=== PATIENT | female | born 2000 | race Caucasian/White ===

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

== ENCOUNTER 2023-09-13 15:48 | Emergency (ER) | payer OTHER ==
[~2023-09-13] VITALS: Ht 152.4 cm; Wt 70.3 kg
[2023-09-13 16:18] VITALS: BP 115/61; PULSE 72; RESP 18; TEMP 98.5; O2SAT 100
[2023-09-13] MEDS ORDERED: KEN.025C TP (19:36)
[2023-09-13 20:02] VITALS: BP 115/61; PULSE 72; RESP 18; TEMP 98.5; O2SAT 100
== END 2023-09-13 20:02 | disposition home or self-care (01) ==
LOC: MED 15:48
DX: L30.9 Dermatitis, unspecified (principal); Z79.899 Other long term (current) drug therapy
CPT/HCPCS: 99283